=== PATIENT | female | born 1980 | race Caucasian/White ===

== ENCOUNTER → 2018-01-10 | Outpatient (CLI) | payer OTHER ==
[~2018-01-10] MED LIST: CETI10TA84 PO; CHOL100010 PO
--- NOTE | 2018-01-10 09:42 | DIAGNOSTIC IMAGING REPORT ---
SINUSES-MAXILLOFACIAL W/O CLINICAL HISTORY: 37 years-old Female presenting with RECURRENT ACUTE SINUSITIS. TECHNIQUE: Multidetector CT of the sinuses was performed without the use of intravenous contrast. IV contrast: None. A dose lowering technique was used consistent with the principles of ALARA (as low as reasonably achievable). COMPARISON: CT head from 02/29/2016. CT DOSE (mGy.cm): The estimated cumulative dose is 542.97 mGy.cm. FINDINGS: Costume Cutter topogram: Unremarkable. Trace fluid in the right mastoid air cells similar to prior. Remainder of the paranasal sinuses and mastoid air cells clear. No convincing evidence of sclerosis of the maxillary sinus krishnamurthy to suggest chronic sinusitis. Bony nasal septum with minimal rightward deviation and rightward bony spurring. Ostiomeatal units patent bilaterally. Nasofrontal ethmoid recesses patent bilaterally. No bony dehiscence of the optic canals or carotid siphons. No significant anatomic variant. Soft tissues of the face, including the orbits, normal. Limited intracranial evaluation within normal limits. IMPRESSION: No current evidence of acute or chronic sinusitis. Trace chronic right mastoid air cell fluid. No significant anatomic variant. Electronically signed by: Rene Mayes M.D. 01/10/2018 9:40 AM Dictated Date/Time: 01/10/2018 9:36 AM
== END | disposition home or self-care (01) ==
LOC: C.CTS 08:48
PROVIDERS: ATTEND Internal Medicine
DX: J01.91 Acute recurrent sinusitis, unspecified (principal)